=== PATIENT | male | born 1950 | race Caucasian/White ===

== ENCOUNTER 2018-09-02 10:51 | Emergency (ER) | payer MEDICARE ==
[~2018-09-02] VITALS: Ht 182.9 cm; Wt 90.9 kg
[2018-09-02 11:00] VITALS: Ht 182.9 cm; Wt 90.9 kg
[2018-09-02] MEDS ORDERED: LIPITOR10 MG PO (11:03)
[2018-09-02] MEDS ORDERED: NAPROSYN500 MG PO (11:04)
[2018-09-02] MEDS ORDERED: NORVASC10 MG PO (11:04)
[2018-09-02 11:41] LABS: BASOPHILS 0.2 % (0-2); EOSINOPHILS 0.1 % (0-7); HEMATOCRIT 45.6 % (42.0-54.0); IMMATURE GRANULOCYTES 0.4 % (0-5); LYMPHOCYTES 7.2 % (15-50); MCH 32.7 pg (26.0-34.0); MCHC 35.1 g/dL (31.0-37.0); MCV 93.1 fL (80.0-100.0); MEAN PLATELET VOLUME 9.5 fL (7.4-10.4); MONOCYTES 11.4 % (2-11); NEUTROPHILS 80.7 % (40-80); PLATELET COUNT 214 10x3/uL (130-400); WBC 17.8 10x3/uL (4.8-10.8)
[2018-09-02 12:07] LABS: ALBUMIN 3.7 g/dL (3.4-5.0); ANION GAP 11.8 mmol/L (8-16); BILIRUBIN - TOTAL 1.53 mg/dL (0.2-1.3); CALCIUM 8.9 mg/dL (8.5-10.1); CARBON DIOXIDE 27.8 mmol/L (21.0-32.0); CREATININE - SERUM 1.2 mg/dL (0.6-1.3); POTASSIUM - SERUM 3.6 mmol/L (3.5-5.1); PROTEIN - SERUM 7.7 g/dL (6.4-8.2)
[2018-09-02] MEDS ORDERED: SULFAMETHOXAZOL1 TA3 PO (12:39)
[2018-09-02 13:12] LABS: APPEARANCE CLOUDY (CLEAR); BILIRUBIN NEGATIVE (NEGATIVE); COLOR YELLOW (YELLOW); GLUCOSE NEGATIVE (NEGATIVE); KETONE NEGATIVE (NEGATIVE); NITRITE NEGATIVE (NEGATIVE); PROTEIN 2+ mg/dL (NEGATIVE); UROBILINOGEN NORMAL (NORMAL)
[2018-09-02 13:14] LABS: BACTERIA MANY /hpf (NONE SEEN); EPITHELIAL CELLS 0-5 /hpf (0-5)
[2018-09-02 13:17] VITALS: BP 149/92
== END 2018-09-02 13:23 | disposition home or self-care (01) ==
LOC: D.ER 10:51
PROVIDERS: Emergency Medicine
DX: C44.602 Unspecified malignant neoplasm of skin of right upper limb, including shoulder (principal)